=== PATIENT | male | born 2005 | race Caucasian/White ===

== ENCOUNTER 2023-11-02 16:45 | Emergency (ER) | payer OTHER, SELFPAY ==
[2023-11-02 16:53] VITALS: BP 149/126
[2023-11-02 17:24] LABS: % Basophils 0.3 % (0-2); % Eosinophils 0.1 % (0-6); % Immature Granulocytes 0.5 % (0-0.5); % Lymphocytes 29.9 % (20.5-51.1); % Monocytes 8.6 % (1.7-9.3); % Neutrophils 60.6 % (42.2-75.2); Absolute Basophils 0.1 10^3/uL (0-0.2); Absolute Immature Granulocytes 0.1 10^3/uL (0-0.05); Absolute Lymphocytes 4.4 10^3/uL (1.2-3.4); Absolute Monocytes 1.3 10^3/uL (0.1-0.6); Hematocrit 39.5 % (39.0-52.0); Hemoglobin 12.9 g/dL (13.0-18.0); Mean Corp Hgb Conc. 32.7 g/dL (33.0-37.0); Mean Corpuscular Hgb 23.8 pg (27.0-31.0); Mean Platelet Volume 11.6 fL (7.4-10.4); Nucleated Red Blood Cells % 0 % (-); Platelet Count 221 10^3/uL (130-400); Red Blood Cell Count 5.41 10^6/uL (4.70-6.10); Red Cell Dist. Width 15.6 % (11.5-14.5); White Blood Cell Count 14.8 10^3/uL (4.8-10.8)
[2023-11-02 17:34] LABS: Lactic Acid 1.5 mmol/L (0.7-2.0)
[2023-11-02 17:42] LABS: ALT (SGPT) 38 U/L (0-50); AST (SGOT) 18 U/L (17-59); Albumin 4.3 g/dl (3.5-5.0); Alkaline Phosphatase 75 U/L (38-126); Blood Urea Nitrogen 11 mg/dl (9-20); Calcium 9.8 mg/dl (8.4-10.2); Carbon Dioxide 23 mmol/L (22-30); Chloride 105 mmol/L (98-107); Glucose 111 mg/dl (70-99); Sodium 140 mmol/L (135-145); Total Bilirubin 0.7 mg/dl (0.2-1.3); Total Protein 7.8 g/dl (6.3-8.2); eGFR > 60.00
--- NOTE | 2023-11-02 19:23 | ED.GENMED ---
History of Present Illness
General
Chief Complaint: Headache
Source: patient
Exam Limitations: none
Time Seen by Provider: 11/02/23 19:05
Nursing documentation reviewed up to this point in time: agreed with
Travel History
Have you had any contact with someone who has COVID-19?: No
Do you have any symptoms of coronavirus? Fever > 100 degrees, chills, cough, shortness of breath, sore throat, loss of taste or smell, muscle aches, or headache?: No
History of Present Illness
History of Present Illness:
Patient to ED with complaint of skin rash. States he developed a fever 10 days ago.. He was seen in office by PCP on Thursday and started on AUgmenting for suspected sinus infection. She completed antibiotic course on Thursday. She was seen by PCP
again on thursday after developeing a skin rash to his arms and legs. Started on a steroid taper. States rash continues. No difficulty breathing or swallowin. Brought to ED by family for eval.
Past History
Past History
ED Past Medical History: Asthma, GERD, HTN and Psychiatric
Social History
Tobacco: Non-smoker
Alcohol: None
Drug: None
Review of Systems
Review of Systems
Allergies reviewed?: Yes
All Other Systems: ROS reviewed and negative except as documented in HPI and ROS
Constitutional: Reports no symptoms
EENT: Reports no symptoms
Respiratory: Reports no symptoms
Cardiac: Reports no symptoms
ABD/GI: Reports no symptoms
: Reports no symptoms
Musculoskeletal: Reports no symptoms
Skin: Reports other (mild erythema to bilateral arms. No distinct rash)
Neurological: Reports no symptoms
Endocrine: Reports no symptoms
Psychiatric: Reports no symptoms
Phy Exam
General Physical Exam
General Presentation: well appearing and no apparent distress
General age: appears stated age
General Skin: warm and dry
General Habitus: normal
ENT Exam
ENT Exam: EOMI
Cardiovascular Exam
Cardiovascular Exam: regular rate/rhythm
Pulmonary Exam
Pulmonary Exam: lungs clear and no respiratory distress
Gastrointestinal Exam
Gastrointestinal Exam: normal bowel sounds, non tender and soft
Musculoskeletal Exam
Musculoskeletal Exam: full ROM and neuro vasc intact
Skin Exam
Skin Exam: normal color, warm/dry and other (mild erythema to bilateral arms. No distinct rash. No rash or erythema noted elsewhere)
Psychiatric Exam
Psychiatric Exam: normal mood/affect
Course
Orders/Labs/Results
Orders:
Orders
11/02/23 16:58
ECG [Electrocardiogram (*1)] Urgent
Reason for Study: Tachycardia
11/02/23 16:59
EKG- Treatment ONCE
11/02/23 17:13
Complete Blood Count/With Diff Urgent
Comprehensive Metabolic Panel Urgent
Lactic Acid Urgent
Blood Culture Urgent
THANIA Source: Blood/Venous
Specimen Description:
Abnormal Lab Results
11/02/23
17:13
WBC 14.8 H 10^3/uL
(4.8-10.8)
Hgb 12.9 L g/dL
(13.0-18.0)
MCV 73.0 L fL
(80.0-94.0)
MCH 23.8 L pg
(27.0-31.0)
MCHC 32.7 L g/dL
(33.0-37.0)
RDW 15.6 H %
(11.5-14.5)
MPV 11.6 H fL
(7.4-10.4)
Abs Immat Gran (auto) 0.1 H 10^3/uL
(0-0.05)
Absolute Neuts (auto) 9.0 H 10^3/uL
(1.4-6.5)
Absolute Lymphs (auto) 4.4 H 10^3/uL
(1.2-3.4)
Absolute Monos (auto) 1.3 H 10^3/uL
(0.1-0.6)
Glucose 111 H mg/dl
(70-99)
11/02/23 17:13
11/02/23 17:13
Vital Signs
Initial and Last Documented VS:
Initial Vital Signs
Temp Pulse Resp BP Pulse Ox
98.3 F 107 20 149/126 98
11/02/23 16:53 11/02/23 16:53 11/02/23 16:53 11/02/23 16:53 11/02/23 16:53
Last Documented Vital Signs
Temp Pulse Resp BP Pulse Ox
99.3 F 106 16 98/52 96
11/02/23 20:10 11/02/23 20:10 11/02/23 20:10 11/02/23 20:10 11/02/23 20:10
*Critical Care Note
Total Time (30-74mins, 75-104mins- exclusive of procedures): Not Applicable
ED Attending Note
-
Portions of this chart may have been created with voice recognition software.� Occasional wrong word or��sound alike� substitutions may have occurred due to the inherent limitations of voice recognition software.
Discharge Plan
Departure
Patient Disposition: Home (Routine Discharge)
Date of Disposition: 11/02/23
Time of Disposition: 19:35
Patient with high blood pressure during this ER visit?: No
Condition: Good
Covid-19: Not Applicable
Discharge Problem:
Allergic reaction
Instructions: Allergic Reaction ED
Prescriptions:
New
hydroxyzine pamoate [Vistaril] 25 mg capsule
25 mg PO TID PRN (Reason: itching) Qty: 20 0RF
Referrals:
Joyce Scott CRNP [Family Provider] - Tomorrow
Interventions
Interventions:
*Risk Screen - Suicide Last Done: 11/02/23 16:53
*General Assessment Last Done: 11/02/23 16:53
*Neglect/Abuse Screening Last Done: 11/02/23 18:31
ED- Fall Risk Assessment Last Done: 11/02/23 18:31
*ED COVID-19 Vaccine History Last Done: 11/02/23 18:31
*Nursing Disposition Last Done: 11/02/23 20:10
ED- Neurological Assessment Last Done: 11/02/23 18:31
Discharge Date and Time
Discharge Date/Time: 11/02/23 20:10
[2023-11-02 20:10] VITALS: BP 98/52
== END 2023-11-02 20:10 | disposition home or self-care (01) ==
LOC: EMR 16:45
PROVIDERS: Emergency Medicine; EMERGENCY PHYSICIAN Emergency Medicine; FAMILY PHYSICIAN Nurse Practitioner Family
DX: T78.40XA Allergy, unspecified, initial encounter (principal); X58.XXXA Exposure to other specified factors, initial encounter; R21 Rash and other nonspecific skin eruption; R50.9 Fever, unspecified; K21.9 Gastro-esophageal reflux disease without esophagitis; J45.909 Unspecified asthma, uncomplicated; I10 Essential (primary) hypertension
CPT/HCPCS: 99283; 80053; 83605; 85025; 87040; 93005

== ENCOUNTER 2025-06-25 18:46 | Emergency (ER) | payer OTHER, SELFPAY ==
[2025-06-25 19:06] VITALS: BP 168/67
--- NOTE | 2025-06-25 20:02 | ED.GENMED ---
History of Present Illness
General
Chief Complaint: Head Injury
Time Seen by Provider: 06/25/25 19:26
History of Present Illness
History of Present Illness:
see MDM
Past History
Past History
ED Past Medical History: Asthma, GERD, HTN and Psychiatric
Social History
Tobacco: Non-smoker
Alcohol: None
Drug: None
Phy Exam
Physical Exam
Physical Exam:
MDM
Course
Vital Signs
Initial and Last Documented VS:
Initial Vital Signs
Temp Pulse Resp BP Pulse Ox
36.9 C 86 20 168/67 98
06/25/25 19:06 06/25/25 19:06 06/25/25 19:06 06/25/25 19:06 06/25/25 19:06
Last Documented Vital Signs
Temp Pulse Resp BP Pulse Ox
36.9 C 86 20 168/67 98
06/25/25 19:06 06/25/25 19:06 06/25/25 19:06 06/25/25 19:06 06/25/25 19:06
MDM/Problems Addressed
Differential Diagnosis Includes:
see MDM
MDM/Problems Addressed:
Note:
CHIEF COMPLAINT(S)
The patient presents with head injury.
HISTORY OF PRESENT ILLNESS
The patient is a 20-year-old female with h/o antiphospholipid syndrome on baby asa
who reports striking the back of her head on a metal handle of a fridge approximately two hours ago while retrieving ice from the freezer. she stood up and hit the top of her head. Since the incident, she experiences feelings of wooziness,
difficulty in word retrieval, slight lightheadedness, and 'brain fog.' The patient denies loss of consciousness, vomiting, or changes in vision. She describes a non-severe neck pain encircling her neck but denies difficulty moving her neck or
significant pain upon movement. The patient reports a headache exacerbated by light. She denies any arm or leg weakness, numbness, or tingling.
PAST MEDICAL AND SURIGICAL HISTORY
The patient has a blood disorder identified as an antiphospholipdi syndrome and has a history of two provoked deep vein thromboses (DVTs) from the previous year. She was not placed on warfarin due to underlying Crohns disease and concerns about
gastrointestinal side effects, opting instead for aspirin therapy.
SOCIAL HISTORY
The patient is a college student attending classes online.
PHYSICAL EXAM
GENERAL: Alert , in no apparent distress
HEAD: Mild superficial abrasion to the top of the head, no significant swelling, mild tenderness
NECK buffalo hump: no midline tenderness, active ROM intact, no paraspinal muscle tenderness;
EYE: pupils equal and reactive, EOMs intact.
ENT: o/p clr, mmm. no hemotympanum
CARDIAC: Regular rate and rhythm, no edema
LUNGS: Clear breath sounds bilaterally, no acute respiratory distress, no wheezes/rales/rhonchi
ABDOMEN: Soft, without focal tenderness, no r/g, no cvat
NEUROLOGICAL: Alert and oriented, no focal neuro deficits, CN intact, 5/5 strength, sensation intact, pronator drift negative, finger-nose normal
SKIN: Warm and dry,
MUSCULOSKELETAL: No edema, well perfused.
PSYCH: Normal and appropriate interaction.
Nursing notes reviewed and vital signs reviewed.
PROBLEM LIST
- Acute: Head injury with symptoms suggestive of a minor concussion.
- Chronic: Factor V Leiden deficiency, Crohn�s disease.
PLAN
As the neurological exam is reassuring, a CT scan is not deemed necessary given the low mechanism of injury and absence of red flag symptoms. The patient is advised to manage pain with acetaminophen and to avoid ibuprofen due to aspirin use.
Recommendations include cognitive rest with restrictions on electronic use and reading for the next 48 hours. The patient is advised to avoid contact sports until cleared by a physician. The patient is excused from school for Thursday and Thursday with
re-evaluation as needed if symptoms persist beyond this period. Instructions are given to return if symptoms worsen or if specific concerning symptoms such as confusion, significant headache escalation, or loss of consciousness occurs. Follow-up
with her primary care provider is advised.
DIFFERENTIAL DIAGNOSIS
The Differential Diagnosis includes, in no particular order and is not limited to:
1. Minor concussion
2. Post-traumatic headache
3. Cervical strain
4. Subconcussive injury
5. Vestibular dysfunction
6. Migraine exacerbation
7. Occipital neuralgia
8. Tension-type headache
9. Acute stress reaction
10. Sinus headache
Disposition:
SUMMARY OF ENCOUNTER
The patient is a 20-year-old female with a history of antiphospholipid syndrome and previous deep vein thromboses (DVTs), currently on aspirin therapy, and has Crohns disease. She presented to the emergency department after hitting the top of her
head on a refrigerator door handle. She reports feeling dazed immediately following the incident, with symptoms of headache, lightheadedness, and word-finding difficulties, but denies any loss of consciousness, nausea, or vomiting. Her headache is
described as moderate in intensity. On examination, she has mild photophobia, but otherwise, an intact neurological exam. Given her lack of severe symptoms and normal neurological findings, we decided to observe her for symptom worsening over the
next three hours. The patient agreed to home observation, deferring brain imaging due to the mild nature of her symptoms and normal exam.
DISPOSITION
Discharge.
ASSESSMENT
Minor head injury with symptoms suggestive of a minor concussion.
PLAN
The patient is to manage headache symptoms with acetaminophen and is advised against using ibuprofen due to concurrent aspirin therapy. She is advised to maintain cognitive rest by limiting electronic use and reading for the next 48 hours and should
avoid contact sports or any activities that could risk further head injury. The patient was educated on returning precautions and instructed to monitor symptoms at home, seeking further medical attention if her symptoms worsen or new symptoms, such
as significant headache escalation or confusion, develop.
PATIENT EDUCATION AND COUNSELING
The patient was informed about the importance of brain rest and typical symptoms of a concussion. She was educated on warning signs that would necessitate returning for further evaluation, such as worsening headaches, confusion, or any new symptoms.
FOLLOW-UP INSTRUCTIONS
The patient was advised to follow up with her primary care provider for re-evaluation if symptoms persist beyond the cognitive rest period or worsen.
MEDICAL DECISION MAKING
-Complexity of Data Reviewed: Chronic conditions affecting care include antiphospholipid syndrome, previous DVTs, and Crohns disease. Differential diagnoses considered include: minor concussion, post-traumatic headache, cervical strain,
sub-concussive injury, vestibular dysfunction, migraine exacerbation, occipital neuralgia, tension-type headache, acute stress reaction, sinus headache.
-Data:
Category 1: None mentioned.
Category 2: My independent radiology interpretation was deferred, as brain imaging was not deemed necessary at this time given the mild nature of the symptoms and normal neurological examination.
Category 3: No discussion with other healthcare providers was noted.
-Risk: Prescription medication was prescribed: acetaminophen for pain management.
DIAGNOSIS
Minor concussion (ICD-10 S06.0XA).
*Pulse Oximetry
SaO2: 98
Oxygen Mode of Delivery: Room air
Patient hypoxic: no (98)
*Critical Care Note
Total Time (30-74mins, 75-104mins- exclusive of procedures): Not Applicable
ED Attending Note
-
Portions of this chart may have been created with voice recognition software.� Occasional wrong word or��sound alike� substitutions may have occurred due to the inherent limitations of voice recognition software.
Discharge Plan
Departure
Patient Disposition: Home (Routine Discharge)
Date of Disposition: 06/25/25
Time of Disposition: 19:41
Patient with high blood pressure during this ER visit?: No
Condition: Fair
Covid-19: Not Applicable
Discharge Problem:
Mild concussion
Instructions: Concussion, Adult (DC)
Prescriptions:
No Action
hydroxyzine pamoate [Vistaril] 25 mg capsule
25 mg PO TID PRN (Reason: itching) Qty: 20 0RF
Stand Alone Forms: Back to School
Activity Restrictions/Additional Instructions:
You probably have a mild concussion. Brain rest for 48 hours limiting your TV, cell phone, computer, reading. After 48 hours you can return to normal activities. Avoid contact sports until you are symptom-free, make sure you see your doctor for
this. Take Tylenol for pain. Over the next 3 hours please watch for severe worsening of headache, vomiting, confusion, change in mental status and return immediately. If your symptoms are controlled by the time the observation at home and you can
go to sleep.
Return for any concerns
Interventions
Interventions:
*Risk Screen - Suicide Last Done: 06/25/25 19:06
*General Assessment Last Done: 06/25/25 19:06
*Neglect/Abuse Screening Last Done: 06/25/25 19:06
*ED COVID-19 Vaccine History Last Done: 06/25/25 19:06
*ED Influenza Vaccine History Last Done: 06/25/25 19:06
Discharge Date and Time
Print Language: [place]
== END 2025-06-25 19:45 | disposition home or self-care (01) ==
LOC: EMR 18:46
PROVIDERS: EMERGENCY PHYSICIAN Emergency Medicine; FAMILY PHYSICIAN Nurse Practitioner Family
DX: S06.0X0A Concussion without loss of consciousness, initial encounter (principal); W22.8XXA Striking against or struck by other objects, initial encounter; K21.9 Gastro-esophageal reflux disease without esophagitis; I10 Essential (primary) hypertension; J45.909 Unspecified asthma, uncomplicated; K50.90 Crohn's disease, unspecified, without complications; Z79.01 Long term (current) use of anticoagulants; Z86.718 Personal history of other venous thrombosis and embolism
CPT/HCPCS: 99282

== ENCOUNTER 2025-07-21 14:47 | Emergency (ER) | payer OTHER, SELFPAY ==
[2025-07-21 14:50] VITALS: BP 135/102
[2025-07-21 15:31] LABS: Hematocrit 42.9 % (39.0-52.0); Hemoglobin 14.4 g/dL (13.0-18.0); Mean Corp Hgb Conc. 33.6 g/dL (33.0-37.0); Mean Corpuscular Volume 88.5 fL (80.0-94.0); Nucleated Red Blood Cells % 0 % (-); Platelet Count 289 10^3/uL (130-400); Red Cell Dist. Width 12.7 % (11.5-14.5)
[2025-07-21 15:43] LABS: ALT (SGPT) 55 U/L (0-50); AST (SGOT) 34 U/L (17-59); Albumin 5.3 g/dl (3.5-5.0); Alkaline Phosphatase 82 U/L (38-126); Blood Urea Nitrogen 11 mg/dl (9-20); Calcium 10.5 mg/dl (8.4-10.2); Carbon Dioxide 27 mmol/L (22-30); Chloride 102 mmol/L (98-107); Glucose 86 mg/dl (70-99); Potassium 4.6 mmol/L (3.5-5.1); Sodium 139 mmol/L (135-145); Total Protein 8.2 g/dl (6.3-8.2); eGFR > 60.00
[2025-07-21 15:45] LABS: INR 0.95; PT 13.0 Sec (11.4-14.6)
[2025-07-21 15:47] LABS: APTT 30.0 Sec (23.4-35.0)
[2025-07-21 15:54] LABS: Troponin I 0.014 ng/ml
--- NOTE | 2025-07-21 20:29 | ED.GENMED ---
History of Present Illness
General
Chief Complaint: Breathing Problem
Source: patient and family
Exam Limitations: none
Time Seen by Provider: 07/21/25 19:09
History of Present Illness
History of Present Illness:
Note:
CHIEF COMPLAINT(S)
Shortness of breath
HISTORY OF PRESENT ILLNESS
The patient is a 20-year-old female who presents with shortness of breath. She recently underwent an hysterectomy and vulvar lesion excision on the previous . The surgeries were performed laparoscopically and the patient reports minimal
postoperative pain and recovery issues. The surgeries were indicated due to a clotting disorder which contraindicated continued use of her control method, and she also has a history of pernicious anemia related to a chronic disease. Her
hemoglobin levels have recently stabilized.
The patients primary care physician recommended an emergency room visit due to concerns about possible aspiration pneumonia or pulmonary embolism after noting abnormal lung sounds. The patient describes the shortness of breath as differing from her
asthma symptoms.
PAST MEDICAL AND SURGICAL HISTORY
- Hysterectomy (recent)
- Vulvar lesion excision (recent)
- Clotting disorder
- Pernicious anemia
- Asthma
ALLERGIES
- Nuts
- Sesame seeds
- Dyes
REVIEW OF SYSTEMS
- Respiratory: Shortness of breath, differing from asthma symptoms.
PHYSICAL EXAM
General: Alert, no acute distress. Obese
Skin: Warm, dry.
Head: Normocephalic, atraumatic.
Neck: Supple, trachea midline.
Eye Ears, nose, mouth and throat: Oral mucosa moist.
Cardiovascular: Regular heart rate and rhythm without murmurs. Normal peripheral perfusion. No edema.
Respiratory: Lungs are clear to auscultation. Respirations are non-labored.
Gastrointestinal: Abdomen non-distended.
Musculoskeletal: Normal range of motion, normal strength.
Neurological: Alert and oriented to person, place, time, and situation, no focal neurological deficit observed.
Psychiatric: Cooperative, appropriate mood & affect.
PLAN
- Perform a CT scan to rule out pulmonary embolism, pneumonia, or atelectasis.
- Initiate treatment based on CT scan findings, addressing any pulmonary embolism or pneumonia if detected.
DIFFERENTIAL DIAGNOSIS
The Differential Diagnosis includes, in no particular order and is not limited to:
- Pulmonary embolism
- Aspiration pneumonia
- Atelectasis
- Bronchitis
- Asthma exacerbation
- Upper respiratory infection
- Pleuritis
- Costochondritis
- Chronic obstructive pulmonary disease
- Heart failure
EKG
My independent EKG interpretation is:
- Rhythm: Normal
- Heart Rate: Not specified
- NE Interval: Not specified
- QRS Duration: Not specified
- QT Interval: Not specified
- [place]: Normal
- Notable Abnormalities: None observed
- Additional Findings: No Q waves or ischemic changes noted
Disposition:
SUMMARY OF ENCOUNTER
The patient is a 20-year-old female who presented to the emergency department with mild shortness of breath and cough. She has a history of a clotting disorder and has been on enoxaparin (Lovenox) since her recent surgical procedures, which included
a hysterectomy. On evaluation, she was not hypoxic, had an oxygen saturation of 99%, and her heart rate was [address] scan ruled out central pulmonary embolism (PE), and there was no clinical concern for PE, particularly as she is currently being
treated with enoxaparin. The patient was deemed stable for outpatient follow-up.
DISPOSITION
Discharge
ASSESSMENT
The patients shortness of breath and cough are not suggestive of a pulmonary embolism. The patients treatment with enoxaparin likely mitigates the risk of a PE, and her current clinical presentation supports outpatient management.
PLAN
Recommend outpatient follow-up. If her symptoms persist, consider further testing.
INDEPENDENT REVIEW OF LABS AND INTERPRETATION OF TESTS
My independent review of the CT scan indicates no evidence of central pulmonary embolism.
PATIENT EDUCATION AND COUNSELING
The patient was advised about the findings and the lack of evidence for pulmonary embolism. She was counseled on the importance of follow-up and instructed to monitor her symptoms, seeking further evaluation if they persist.
FOLLOW-UP INSTRUCTIONS
Please arrange for outpatient follow-up with the primary care physician. Further testing may be considered if symptoms persist.
MEDICATION RECONCILIATION
The patient is currently on enoxaparin (Lovenox) for her clotting disorder following recent surgical procedures.
MEDICAL DECISION MAKING
- Number and Complexity of Problems Addressed:
Chronic conditions affecting care include a clotting disorder and postoperative management after hysterectomy.
- Data:
Category 1
My independent interpretation of the CT scan ruled out central pulmonary embolism.
-Risk:
Consideration of Admission/Observation: Escalation of care, including admission/observation, was considered given the complexity and risk of the patients presenting complaint, exam findings, and underlying comorbidities. However, ultimately I feel
the patient is safe for outpatient management with close follow-up. Reasoning: Work-up reassuring, no acute life/organ-threatening processes revealed, symptoms well controlled upon reevaluation, reexamination reassuring, vitals stable, patient
agreeable with discharge, and reliable for follow-up.
DIAGNOSIS
Cough and shortness of breath, unspecified (R05)
Past History
Past History
ED Past Medical History: Asthma, GERD, HTN and Psychiatric
Social History
Tobacco: Non-smoker
Alcohol: None
Drug: None
Phy Exam
Physical Exam
Physical Exam:
.
Course
Orders/Labs/Results
Orders:
Orders
07/21/25 14:52
Electrocardiogram (*1) Urgent
Reason for Study: Shortness of Breath
EKG- Treatment ONCE
07/21/25 15:10
Complete Blood Count/With Diff Urgent
07/21/25 15:11
Comprehensive Metabolic Panel Urgent
PT/INR [Prothrombin Time] Urgent
Is patient on Coumadin/Warfarin?: No
Comment: [email or web address]
PTT Urgent
Troponin I Urgent
07/21/25 19:20
CT Chest PE Study Urgent
Comment:
Reason For Exam: sob, recent surgery, h/o clotting d/o
Abnormal Lab Results
07/21/25 07/21/25
15:10 15:11
Abs Immat Gran (auto) 0.1 H 10^3/uL
(0-0.05)
Immature Gran % 1.4 H %
(0-0.5)
Calcium 10.5 H mg/dl
(8.4-10.2)
ALT 55 H U/L
(0-50)
Albumin 5.3 H g/dl
(3.5-5.0)
07/21/25 15:10
07/21/25 15:11
Vital Signs
Initial and Last Documented VS:
Initial Vital Signs
Temp Pulse Resp BP Pulse Ox
98.6 F 88 16 135/102 99
07/21/25 14:50 07/21/25 14:50 07/21/25 14:50 07/21/25 14:50 07/21/25 14:50
Last Documented Vital Signs
Temp Pulse Resp BP Pulse Ox
98.6 F 93 26 135/102 97
07/21/25 14:50 07/21/25 18:46 07/21/25 18:46 07/21/25 14:50 07/21/25 18:46
*Pulse Oximetry
SaO2: 97
Oxygen Mode of Delivery: Room air
Patient hypoxic: no
*Critical Care Note
Total Time (30-74mins, 75-104mins- exclusive of procedures): Not Applicable
ED Attending Note
-
Portions of this chart may have been created with voice recognition software.� Occasional wrong word or��sound alike� substitutions may have occurred due to the inherent limitations of voice recognition software.
Discharge Plan
Departure
Patient Disposition: Home (Routine Discharge)
Date of Disposition: 07/21/25
Time of Disposition: 20:31
Patient with high blood pressure during this ER visit?: Yes
Discharge Problem:
Cough, Dyspnea
Instructions: Shortness of Breath (Dyspnea) (DC), BLOOD PRESSURE
Prescriptions:
No Action
hydroxyzine pamoate [Vistaril] 25 mg capsule
25 mg PO TID PRN (Reason: itching) Qty: 20 0RF
Referrals:
Joyce Cotton CRNP [Family Provider, Family Practice]
Activity Restrictions/Additional Instructions:
Please see your doctor in the next 3 to 5 days for follow-up and reevaluation. Return immediately for fevers, shortness of breath, chest pain, worsening symptoms or any other concerns. Continue your Lovenox
Interventions
Interventions:
*Risk Screen - Suicide Last Done: 07/21/25 14:49
*General Assessment Last Done: 07/21/25 18:51
*Neglect/Abuse Screening Last Done: 07/21/25 18:51
*ED- Fall Risk Assessment Last Done: 07/21/25 18:51
*ED COVID-19 Vaccine History Last Done: 07/21/25 18:51
*ED Influenza Vaccine History Last Done: 07/21/25 18:51
ED- Cardiac Assessment Last Done: 07/21/25 18:51
ED- Pulmonary Assessment Last Done: 07/21/25 18:51
Discharge Date and Time
Print Language: [place]
[2025-07-21 20:45] VITALS: BP 140/100
[2025-07-21 20:47] VITALS: BP 157/81
== END 2025-07-21 21:01 | disposition home or self-care (01) ==
LOC: EMR 14:47
PROVIDERS: Student in an Organized Health Care Education/Training Program; EMERGENCY PHYSICIAN Emergency Medicine; FAMILY PHYSICIAN Nurse Practitioner Family
DX: R05.9 Cough, unspecified (principal); R06.00 Dyspnea, unspecified; D68.9 Coagulation defect, unspecified; D51.0 Vitamin B12 deficiency anemia due to intrinsic factor deficiency; I10 Essential (primary) hypertension; J45.909 Unspecified asthma, uncomplicated; K21.9 Gastro-esophageal reflux disease without esophagitis; Z79.01 Long term (current) use of anticoagulants
CPT/HCPCS: 99284; 71275; 80053; 84484; 85025; 85610; 85730; 93005; Q9967

== ENCOUNTER 2025-07-30 22:20 | Emergency (ER) | payer OTHER, SELFPAY ==
[2025-07-30 22:28] VITALS: BP 170/97
[2025-07-30 23:02] VITALS: BMI 51.3
--- NOTE | 2025-07-30 23:03 | EDRN ---
Pt confirmed she is female by and does not know why her chart says male. Pt had hysterectomy 07/13 and stopped her aspirin 5 days prior. Pt started lovenox 45 minutes after surgery. Pt stopped lovenox Thursday. Pt is back on baby aspirin.
Pt in this ED 1 week ago with concern about PE because of cough, using inhaler more. Pt here tonight because she feels her breathing is labored since 2144. Pt has hx asthma but it does not feel like that. Chest feels tight, uncomfortable -
nothing changes this. No cough, bleeding, n/v, fever/chills, abd pain.
[2025-07-30 23:23] VITALS: BP 120/51
--- NOTE | 2025-07-30 23:24 | ED.GENMED ---
History of Present Illness
General
Chief Complaint: Breathing Problem
Source: patient and family
Time Seen by Provider: 07/30/25 23:01
History of Present Illness
History of Present Illness:
This patient is a 20-year-old female, accompanied by her mother and father, who is multiple medical problems including antiphospholipid syndrome. She typically takes aspirin as a result. On July 13, she had a hysterectomy which was performed
laparoscopically and without complications. She was immediately placed on Lovenox which she continued until last Thursday at her doctor's instructions. She has since resumed aspirin. Tonight, just a few hours before presentation, she felt like
her breathing was 'labored with each breath'. This was associated with a 'tight discomfort' across the front of her chest. This discomfort is not pleuritic in nature, not worse with movement deep breath or cough. She denies cough, hemoptysis,
bleeding, nausea, vomiting, fever, chills, abdominal pain. She denies back pain, neck pain, headache, or other complaints.
Past History
Past History
ED Past Medical History: Asthma, GERD, HTN, Psychiatric and Other (PCOS, Crohn's, antiphospholipid syndrome, hypermobility, pernicious anemia, asthma)
ED Past Surgical History: Gynecological
Social History
Tobacco: Non-smoker
Alcohol: None
Drug: None
Living: with family
Phy Exam
Physical Exam
Physical Exam:
GENERAL: Alert , in no apparent distress, nontoxic, pleasant, obese, in no distress
EYE: pupils equal and reactive
NECK: Supple, no significant adenopathy.
ENT: o/p clr, mmm.
CARDIAC: Regular rate and rhythm .
LUNGS: Clear breath sounds bilaterally, no acute respiratory distress, no wheezes/rales/rhonchi, speaks in full sentences easily
ABDOMEN: Soft, without focal tenderness, no r/g, no cvat, laparoscopic incisions clean dry and intact
NEUROLOGICAL: Alert and oriented, no focal neuro deficits
SKIN: Warm and dry, skin intact.
MUSCULOSKELETAL: No edema, well perfused.
PSYCH: Normal and appropriate interaction.
Course
Orders/Labs/Results
Orders:
Orders
07/30/25 22:23
Electrocardiogram (*1) Urgent
Reason for Study: Shortness of Breath
EKG- Treatment ONCE
07/30/25 23:30
Complete Blood Count/With Diff Urgent
Comprehensive Metabolic Panel Urgent
D-Dimer Urgent
Troponin I Urgent
07/31/25 00:06
CR Chest - 2 Views Urgent
Comment:
Reason For Exam: sob
Abnormal Lab Results
07/30/25
23:30
Glucose 104 H mg/dl
(70-99)
ALT 76 H U/L
(0-35)
07/30/25 23:30
07/30/25 23:30
Vital Signs
Initial and Last Documented VS:
Initial Vital Signs
Temp Pulse Resp BP Pulse Ox
98.4 F 69 20 170/97 99
07/30/25 22:28 07/30/25 22:28 07/30/25 22:28 07/30/25 22:28 07/30/25 22:28
Last Documented Vital Signs
Temp Pulse Resp BP Pulse Ox
98.4 F 82 20 113/69 98
07/30/25 22:28 07/31/25 00:00 07/31/25 00:00 07/31/25 00:00 07/31/25 00:00
*Pulse Oximetry
SaO2: 99
Oxygen Mode of Delivery: Room air
Patient hypoxic: no
*Critical Care Note
Total Time (30-74mins, 75-104mins- exclusive of procedures): Not Applicable
Update Note
Update Note:
Patient presents to the Emergency Department with __dyspnea and chest pain
Number and Complexity of Problems Addressed at the Encounter
� Chronic conditions affecting care:
� Acute Exacerbation and/or Progression of Chronic Illness:
� Differential Diagnosis includes: But not limited to PE, pneumonia, pleurisy, anxiety, costochondritis, pericarditis, musculoskeletal pain, etc. etc.
Amount and/or Complexity of Data to be Reviewed and Analyzed
� I performed an independent evaluation of and my interpretation is:
EKG: Read by me, normal sinus rhythm, normal rate, normal axis, no acute ischemia
CT:
Xrays: Chest x-ray read by me NAD
Laboratory Studies: Unremarkable, D-dimer negative
Other:
� Review of other/old records reveals:
� Clinical information was obtained by an independent historian: Mother and father who are at bedside
� Prescriptions/Medications Considered but not given:
� Further testing considered but not performed:
Risk of Complications and/or Morbidity or Mortality of Patient Management
� Social determinants of health affecting care:
� Discussion with other providers (PCP, Hospitalists, Consultants, etc):
� Escalation of care including admission/observation vs risk of discharge considered: 12:30 AM patient reassessed, awake alert no respiratory distress speaks in full sentences states that she feels better. Workup generally
unremarkable here, highly doubt PE given D-dimer, absence of tachycardia, hypoxia, pleuritic chest pain, etc. etc. ECG unremarkable, no signs to suggest ACS, pericarditis, etc. Discussed with patient portance of follow-up and reasons to return the
ER.
ED Attending Note
-
Portions of this chart may have been created with voice recognition software.� Occasional wrong word or��sound alike� substitutions may have occurred due to the inherent limitations of voice recognition software.
Discharge Plan
Departure
Patient Disposition: Home (Routine Discharge)
Date of Disposition: 07/31/25
Time of Disposition: 00:33
Patient with high blood pressure during this ER visit?: Yes
Condition: Good
Discharge Problem:
Dyspnea
Instructions: BLOOD PRESSURE, Shortness of Breath (Dyspnea) (DC)
Prescriptions:
No Action
cetirizine [Zyrtec] 10 mg Tablet
10 mg PO BID
ondansetron HCl [Zofran] 4 mg Tablet
4 mg PO Q6H PRN (Reason: nausea)
famotidine [Pepcid] 40 mg Tablet
40 mg PO HS
venlafaxine [Effexor XR] 150 mg Capsule,Extended Release 24hr
150 mg PO DAILY
minoxidil 2.5 mg Tablet
2.5 mg PO HS
famotidine [Pepcid] 20 mg Tablet
20 mg PO DAILY
albuterol sulfate 90 mcg/actuation Hfa Aerosol Inhaler
2 puff INHALATION Q6H PRN (Reason: sob)
metoprolol tartrate 25 mg Tablet
25 mg PO HS
quetiapine [Seroquel] 50 mg Tablet
50 mg PO HS
dexlansoprazole 30 mg Capsule,Biphase Delayed Releas
30 mg PO BID
ivabradine 5 mg Tablet
2.5 mg PO BID
mirabegron [Myrbetriq] 50 mg Tablet Extended Release 24 Hr
50 mg PO HS
Rexulti 1 mg Tablet
1 mg PO DAILY
Ubrelvy 100 mg Tablet
100 mg PO DAILYPRN PRN (Reason: migraine)
aspirin 81 mg Capsule
81 mg PO DAILY
Rinvoq 30 mg Tablet Extended Release 24 Hr
30 mg PO DAILY
Referrals:
Joyce Cotton CRNP [Family Provider, Family Practice] - Tomorrow
Activity Restrictions/Additional Instructions:
PLEASE SEE YOUR DOCTOR AND CLOSE FOLLOW-UP. IF YOU DEVELOP FEVER, PERSISTENT COUGH, WORSENING OR PERSISTENT SHORTNESS OF BREATH, WORSENING OR PERSISTENT CHEST PAIN, ABDOMINAL PAIN, OR OTHER WORRISOME SIGNS, PLEASE RETURN TO THE ER IMMEDIATELY
Interventions
Interventions:
*Risk Screen - Suicide Last Done: 07/30/25 22:22
*General Assessment Last Done: 07/30/25 22:22
*Neglect/Abuse Screening Last Done: 07/30/25 22:22
*ED- Fall Risk Assessment Last Done: 07/30/25 22:22
*ED COVID-19 Vaccine History Last Done: 07/30/25 22:22
*ED Influenza Vaccine History Last Done: 07/30/25 22:22
ED- Cardiac Assessment Last Done: 07/30/25 23:37
ED- Pulmonary Assessment Last Done: 07/30/25 23:37
Discharge Date and Time
Print Language: ESTONIAN
[2025-07-30 23:39] LABS: Hematocrit 37.4 % (37.0-47.0); Hemoglobin 12.7 g/dL (12.0-16.0); Mean Corp Hgb Conc. 34.0 g/dL (33.0-37.0); Mean Corpuscular Volume 87.6 fL (81.0-99.0); Nucleated Red Blood Cells % 0 %; Platelet Count 306 10^3/uL (130-400); Red Cell Dist. Width 12.7 % (11.5-14.5)
[2025-07-30 23:53] LABS: D-Dimer < 0.27 ug/mlFEU (0.00-0.50)
[2025-07-30 23:54] LABS: ALT (SGPT) 76 U/L (0-35); AST (SGOT) 35 U/L (14-36); Albumin 4.6 g/dl (3.5-5.0); Alkaline Phosphatase 78 U/L (38-126); Blood Urea Nitrogen 8 mg/dl (7-17); Calcium 10.1 mg/dl (8.4-10.2); Carbon Dioxide 26 mmol/L (22-30); Chloride 106 mmol/L (98-107); Estimated Creatinine Clearance > 125 ml/min; Glucose 104 mg/dl (70-99); Potassium 3.9 mmol/L (3.5-5.1); Sodium 141 mmol/L (135-145); Total Protein 7.0 g/dl (6.3-8.2); eGFR > 60.00
[2025-07-31] VITALS: BP 113/69
[2025-07-31 00:05] LABS: Troponin I < 0.012 ng/ml
== END 2025-07-31 00:42 | disposition home or self-care (01) ==
LOC: EMR 22:20
PROVIDERS: Emergency Medicine; EMERGENCY PHYSICIAN Emergency Medicine; FAMILY PHYSICIAN Nurse Practitioner Family
DX: R06.02 Shortness of breath (principal); I10 Essential (primary) hypertension; J45.909 Unspecified asthma, uncomplicated; D51.0 Vitamin B12 deficiency anemia due to intrinsic factor deficiency; K21.9 Gastro-esophageal reflux disease without esophagitis; D68.61 Antiphospholipid syndrome; K50.90 Crohn's disease, unspecified, without complications; E28.2 Polycystic ovarian syndrome; Z79.82 Long term (current) use of aspirin; Z90.710 Acquired absence of both cervix and uterus
CPT/HCPCS: 99284; 71046; 80053; 84484; 85025; 85379; 93005